=== PATIENT | male | born 1975 | race Caucasian/White ===

== ENCOUNTER → 2017-10-20 | Outpatient (CLI) | payer OTHER ==
[~2017-10-20] VITALS: Ht 188 cm; Wt 81.7 kg
== END | disposition home or self-care (01) ==
LOC: AMB 11:32
DX: R10.32 Left lower quadrant pain (principal); R15.9 Full incontinence of feces; K62.89 Other specified diseases of anus and rectum; R73.03 Prediabetes
CPT/HCPCS: 88305; 88313; J2250; J3010